=== PATIENT | female | born 1960 | race Caucasian/White ===

== ENCOUNTER 2017-07-04 08:06 | Emergency (ER) | payer BC ==
[~2017-07-04] VITALS: Ht 160 cm; Wt 80.0 kg
[2017-07-04 08:10] VITALS: BP 168/77; PULSE 76; RESP 16; TEMP 97.8; O2SAT 97
[2017-07-04 09:40] LABS: AUTOMATED NEUTROPHIL # 6.1 TH/MM3 (1.8-7.7); BASOPHIL % 0.3 % (0.0-2.0); EOSINOPHIL # 0.1 TH/MM3 (0-0.4); EOSINOPHIL % 1.6 % (0.0-4.0); HEMATOCRIT 37.9 % (35.0-46.0); HEMOGLOBIN 12.8 GM/DL (11.6-15.3); LYMPH % 16.4 % (9.0-44.0); LYMPHOCYTE # 1.3 TH/MM3 (1.0-4.8); MEAN CELL VOLUME 82.6 FL (80.0-100.0); MEAN CORPUSCULAR HEMOGLOBIN 27.8 PG (27.0-34.0); MEAN CORPUSCULAR HGB CONC 33.7 % (32.0-36.0); MEAN PLATELET VOLUME 8.6 FL (7.0-11.0); MONO % 6.6 % (0.0-8.0); MONOCYTE # 0.5 TH/MM3 (0-0.9); NEUT % 75.1 % (16.0-70.0); PLATELET COUNT 246 TH/MM3 (150-450); RED BLOOD COUNT 4.59 MIL/MM3 (4.00-5.30); RED CELL DISTRIBUTION WIDTH 13.6 % (11.6-17.2); WHITE BLOOD COUNT 8.1 TH/MM3 (4.0-11.0)
[2017-07-04 09:57] LABS: BACTERIA, URINE OCC /hpf; BILIRUBIN, URINE NEG (NEG); BLOOD, URINE NEG (NEG); GLUCOSE,URINE NEG (NEG); KETONE, URINE NEG (NEG); NITRITE,URINE NEG (NEG); PH, URINE 5.5 (5.0-8.5); SQUAMOUS EPITHELIAL CELL URINE 1 /hpf (0-5); URINE COLOR YELLOW (YELLW/STRAW); URINE LEUKOCYTE ESTERASE NEG (NEG)
[2017-07-04 10:13] LABS: ALKALINE PHOSPHATASE 268 U/L (45-117); ALT (GPT) 458 U/L (10-53); AST (GOT) 748 U/L (15-37); BLOOD UREA NITROGEN 16 MG/DL (7-18); CALCIUM 9.2 MG/DL (8.5-10.1); CHLORIDE 105 MEQ/L (98-107); CREATININE 0.74 MG/DL (0.50-1.00); GLOMERULAR FILTRATION RATE 81 ML/MIN (>89); GLUCOSE,RANDOM 186 MG/DL (74-106); SODIUM (NA) 140 MEQ/L (136-145); TOTAL BILIRUBIN ADULT 1.8 MG/DL (0.2-1.0)
[2017-07-04 11:03] VITALS: BP 134/88; PULSE 68; RESP 16; O2SAT 99
[2017-07-04 11:06] VITALS: BP 134/88; PULSE 68; RESP 17; O2SAT 98
[2017-07-04] MEDS ORDERED: EFFE150C PO (11:12)
[2017-07-04] MEDS ORDERED: MORPHINE SULFATE 4 MG/ML INJ IV PUSH ONE (11:30)
[2017-07-04] MEDS ORDERED: ONDANSETRON HCL 4 MG/2 ML VIAL IV PUSH ONE (11:30)
[2017-07-04] MEDS ORDERED: SODIUM CHLOR 0.9% 1000 ML INJ 1,000 ML IV ONE (11:30)
--- NOTE | 2017-07-04 11:42 | PD ---
HPI Chief Complaint: Abdominal Pain Time Seen by Provider: 11:04 Travel History International Travel<30 days: No Contact w/Intl Traveler<30days: No Traveled to known affect area: No History of Present Illness HPI Patient is a 57-year-old female presents emergency department with epigastric and left upper quadrant pain worsening over the past 2 days. Patient states she never had this before. She has had nausea and vomiting productive of yellow "bile". Patient states she threw up approximately 7-10 times in the last 24 hours. She has no appetite. No fevers. She states this never happened to her before. States she is a rare occasional drinker. Still has her gallbladder, no history of gallstones or pancreatitis in the past. States symptoms are moderate, gradually worsening, associated with left upper quadrant epigastric pain, no exacerbating or relieving factors PFSH Past Medical History Anxiety: Yes Diabetes: Yes Patient Takes Glucophage: Yes Diminished Hearing: No Hypertension: Yes ?: Not Past Surgical History Hysterectomy: Yes Social History Alcohol Use: No Tobacco Use: No Substance Use: No Allergies-Medications (Allergen,Severity, Reaction): Coded Allergies: Penicillins (Verified Allergy, Unknown, 07/04/17) Sulfa (Sulfonamide Antibiotics) (Verified Allergy, Unknown, Hives, 07/04/17 ) metoclopramide (Verified Allergy, Unknown, Anaphylaxis, 07/04/17) metronidazole (Verified Allergy, Unknown, Anaphylaxis, 07/04/17) Reported Meds & Prescriptions Reported Meds & Active Scripts Active Reported Effexor XR 24 HR (Venlafaxine HCl) 150 Mg Cap 225 Mg PO DAILY Review of Systems Except as stated in HPI: all other systems reviewed are Neg Physical Exam Narrative GENERAL: Well-developed, overweight, no obvious distress SKIN: Focused skin assessment warm/dry. HEAD: Atraumatic. Normocephalic. EYES: Pupils equal and round. No scleral icterus. No injection or drainage. ENT: No nasal bleeding or discharge. Mucous membranes pink and moist. NECK: Trachea midline. No JVD. CARDIOVASCULAR: Regular rate and rhythm. No murmur appreciated. RESPIRATORY: No accessory muscle use. Clear to auscultation. Breath sounds equal bilaterally. GASTROINTESTINAL: Abdomen soft, fairly tender in the left upper quadrant just inferior to the rib cage just left of midline. No rebound no percussive tenderness. No spider angiomata. nondistended. Hepatic and splenic margins not palpable. MUSCULOSKELETAL: No obvious deformities. No clubbing. No cyanosis. No edema. NEUROLOGICAL: Awake and alert. No obvious cranial nerve deficits. Motor grossly within normal limits. Normal speech. PSYCHIATRIC: Appropriate mood and affect; insight and judgment normal. Data Data Last Documented VS Vital Signs Date Time Temp Pulse Resp B/P (MAP) Pulse Ox O2 Delivery O2 Flow Rate FiO2 07/04/17 11:06 68 17 134/88 (103) 98 Room Air 07/04/17 08:10 97.8 Orders Orders Complete Blood Count With Diff (07/04/17 08:23) Comprehensive Metabolic Panel (07/04/17 08:23) Urinalysis - C+S If Indicated (07/04/17 08:23) Iv Access Insert/Monitor (07/04/17 08:23) Oxygen Administration (07/04/17 08:23) Oximetry (07/04/17 08:23) Lipase (07/04/17 08:23) Ct Abd/Pel W Iv Contrast(Rout) (07/04/17 ) Morphine Inj (Morphine Inj) (07/04/17 11:30) Ondansetron Inj (Zofran Inj) (07/04/17 11:30) Sodium Chlor 0.9% 1000 Ml Inj (Ns 1000 M (07/04/17 11:30) Iohexol 350 Inj (Omnipaque 350 Inj) (07/04/17 12:11) Labs Laboratory Tests Test 07/04/17 09:03 White Blood Count 8.1 TH/MM3 Red Blood Count 4.59 MIL/MM3 Hemoglobin 12.8 GM/DL Hematocrit 37.9 % Mean Corpuscular Volume 82.6 FL Mean Corpuscular Hemoglobin 27.8 PG Mean Corpuscular Hemoglobin Concent 33.7 % Red Cell Distribution Width 13.6 % Platelet Count 246 TH/MM3 Mean Platelet Volume 8.6 FL Neutrophils (%) (Auto) 75.1 % Lymphocytes (%) (Auto) 16.4 % Monocytes (%) (Auto) 6.6 % Eosinophils (%) (Auto) 1.6 % Basophils (%) (Auto) 0.3 % Neutrophils # (Auto) 6.1 TH/MM3 Lymphocytes # (Auto) 1.3 TH/MM3 Monocytes # (Auto) 0.5 TH/MM3 Eosinophils # (Auto) 0.1 TH/MM3 Basophils # (Auto) 0.0 TH/MM3 CBC Comment DIFF FINAL Differential Comment Urine Color YELLOW Urine Turbidity CLEAR Urine pH 5.5 Urine Specific [place] 1.010 Urine Protein TRACE mg/dL Urine Glucose (UA) NEG mg/dL Urine Ketones NEG mg/dL Urine Occult Blood NEG Urine Nitrite NEG Urine Bilirubin NEG Urine Urobilinogen 2.0 MG/DL Urine Leukocyte Esterase NEG Urine RBC LESS THAN 1 /hpf Urine WBC LESS THAN 1 /hpf Urine Squamous Epithelial Cells 1 /hpf Urine Bacteria OCC /hpf Microscopic Urinalysis Comment CULT NOT INDICATED Blood Urea Nitrogen 16 MG/DL Creatinine 0.74 MG/DL Random Glucose 186 MG/DL Total Protein 8.0 GM/DL Albumin 4.0 GM/DL Calcium Level 9.2 MG/DL Alkaline Phosphatase 268 U/L Aspartate Amino Transf (AST/SGOT) 748 U/L Alanine Aminotransferase (ALT/SGPT) 458 U/L Total Bilirubin 1.8 MG/DL Sodium Level 140 MEQ/L Potassium Level 3.9 MEQ/L Chloride Level 105 MEQ/L Carbon Dioxide Level 27.0 MEQ/L Anion Gap 8 MEQ/L Estimat Glomerular Filtration Rate 81 ML/MIN Lipase GREATER THAN 84102 U/L MDM Medical Decision Making Medical Screen Exam Complete: Yes Emergency Medical Condition: Yes Differential Diagnosis Constipation, pancreatitis, gallstone pancreatitis, gastritis, gastroenteritis, acute abdomen seems unlikely. Narrative Course Patient was roomed in the emergency department, she had labs drawn in triage to expedite her treatment. Patient has several significant laboratory findings, she has a lipase greater than 30,000, alk phos 268, bilirubin 1.8, AST of 748 and ALT of 458. Patient has not had any weight loss but I have recommended a CT of her abdomen, pain medicine and nausea medicine given as well as IV fluids. CT of the abdomen shows multiple gallstones and a contracted gallbladder otherwise negative study. My concern for this patient is gallstone pancreatitis and I discussed with her that she is unlikely to feel better until this gallstone passes and had recommended admission for MRCP and likely ERCP. The patient is in town because her son is getting in [place] and she states that she thought she just had gastroenteritis and thought she could do well to just get some pain medicines and some nausea medicines and then drive to [place] and if she needed check and be seen there. She is adamant that she will not stay in our hospital, her pain is fairly well under control and she is feeling better. I discussed with her that given her levels she is at risk of and permanent disability and she verbalized understanding and agreement. I also discussed the left unchecked her pancreatitis can lead to significant scar tissue formation the abdomen carry risk of need for additional surgery and she can get very ill with dehydration. She verbalized understanding and agreement to all of the wrist as above and still wished to sign out AMA. We did discuss the possibility of transferring her on elective basis to a hospital [facility] however she does not want to pursue this because her wants to drive her up there. I discussed that she really needs to be seen by a battery container tester in the she gets up to [place] still feeling ill by any means she needs to go to the nearest emergency room. She verbalized understanding and agreement. Despite my best efforts I could not convince her to be admitted to our hospital. I could not convince her for a transfer to another facility. The patient signed a formal AGAINST MEDICAL ADVICE paper and will be discharged to her self-care, her is driving her up [place]. Diagnosis Primary Impression: Acute pancreatitis Qualified Codes: K85.10 - Biliary acute pancreatitis without necrosis or infection Disposition: 07 AGAINST MEDICAL ADVICE Condition: Stable Alvino Tim MD Jul 04, 2017 11:42
[2017-07-04] MEDS ORDERED: IOHEXOL 350 MG/ML 10 ML VIAL (for RAD DIAG) IVCONTRAST ONE (12:11)
--- NOTE | 2017-07-04 12:18 | RADRPT ---
EXAM DATE/TIME: 07/04/2017 11:56 [facility] COMPARISON: No previous studies available for comparison. INDICATIONS : Mid upper left abdomen pain IV CONTRAST: 70 cc Omnipaque 350 (iohexol) IV ORAL CONTRAST: No oral contrast ingested. RADIATION DOSE: 8.79 CTDIvol (mGy) MEDICAL HISTORY : Hypertension. Diabetes SURGICAL HISTORY : Hysterectomy. ENCOUNTER: Initial ACUITY: 1 day PAIN SCALE: 8/10 LOCATION: Abdomen TECHNIQUE: Volumetric scanning of the abdomen and pelvis was performed. Using automated exposure control and ad justment of the mA and/or kV according to patient size, radiation dose was kept as low as reasonably achievable to obtain optimal diagnostic quality images. DICOM format image data is available electro nically for review and comparison. FINDINGS: Lower lungs are clear. There is no pericardial effusion The liver is free of focal defects. Multiple gallstones are present in the contracted gallbladder. The spleen and pancreas are unremarkable The adrenal glands appear normal There is symmetrical renal function without mass There is no retrograde adenopathy Cecum and terminal are unremarkable. Transverse and descending colon are unremarkable In the pelvis scattered diverticuli are noted. The bladder and adnexa regions are unremarkable. The re is no free fluid There is no ankle adenopathy The abdominal wall is intact Review of bone images reveals only mild degenerative changes. CONCLUSION: Multiple gallstones in an contracted gallbladder Otherwise negative for acute process. Blaise Maciel MD FACR on July 04, 2017 at 12:13 Board Certified Radiologist. This report was verified electronically.
--- NOTE | 2017-07-04 14:19 | EKG ---
Date Performed: 07/04/2017 Time Performed: 11:10:37 PTAGE: 57 years EKG: Sinus rhythm Nonspecific T wave changes NO PREVIOUS TRACING DOCTOR: Saurabh Ruiz Interpretating Date/Time 07/04/2017 14:17:57
== END 2017-07-04 12:57 | disposition left against medical advice (07) ==
LOC: NEPC 08:06
DX: K85.10 Biliary acute pancreatitis without necrosis or infection (principal); F41.9 Anxiety disorder, unspecified; E11.9 Type 2 diabetes mellitus without complications; I10 Essential (primary) hypertension; Z53.29 Procedure and treatment not carried out because of patient's decision for other reasons; Z79.899 Other long term (current) drug therapy; Z88.0 Allergy status to penicillin; Z88.2 Allergy status to sulfonamides; Z88.8 Allergy status to other drugs, medicaments and biological substances
CPT/HCPCS: 74177; 80053; 81001; 83690; 85025; 93005; 96374; 96375; 99284; J2270; J2405; J7030; Q9967